=== PATIENT | female | born 1950 | race Caucasian/White ===

== ENCOUNTER 2019-09-05 01:03 | Outpatient (CLI) | payer MEDICARE, BC, SELFPAY ==
--- NOTE | 2019-09-05 11:04 | DI.US_ITS ---
EXAM: US AAA SCREENING CLINICAL HISTORY: ? AAA WO RUPTURE, I71.4, ABD PULSATILE MASS, R19.00 TECHNIQUE: Ultrasound performed using standard protocol. COMPARISON: No exams were available for comparison FINDINGS: There is no evidence of an abdominal aortic aneurysm. The aorta measures 2.2 cm in maximal dimension proximally. The iliac arteries are normal in diameter proximally. IMPRESSION: No evidence of an abdominal aortic aneurysm.
== END 2019-09-05 01:23 ==
PROVIDERS: Visit Provider Student in an Organized Health Care Education/Training Program
DX: R19.00 Intra-abdominal and pelvic swelling, mass and lump, unspecified site (principal); Z13.6 Encounter for screening for cardiovascular disorders
CPT/HCPCS: 76706